=== PATIENT | female | born 1960 | race Asian ===

== ENCOUNTER 2020-04-05 09:28 | Emergency (ER) | payer MEDICAID ==
[~2020-04-05] VITALS: Ht 157.5 cm; Wt 45.8 kg
[2020-04-05 09:30] VITALS: BP_SYST 100
[2020-04-05] MEDS ORDERED: PREDNISONE 20 MG TABLET PO ONE (09:45)
[2020-04-05 09:58] VITALS: BP_SYST 100
== END 2020-04-05 09:58 | disposition home or self-care (01) ==
LOC: SED 09:28
DX: R21 Rash and other nonspecific skin eruption (principal)
CPT/HCPCS: 99283; J7512

== ENCOUNTER 2021-05-29 09:31 | Emergency (ER) | payer MEDICAID ==
[~2021-05-29] VITALS: Ht 160 cm; Wt 47.2 kg
[2021-05-29 09:44] VITALS: BP_SYST 147
--- NOTE | 2021-05-29 09:49 | NUR ---
Patient to ER bed 2 to gown for evaluation. Side rails up. Report given to Richardson FELICIANO.
[2021-05-29] MEDS ORDERED: FLUORESCEIN SODIUM 1 MG OPHTHALMIC STRIP OP ONE (10:00)
[2021-05-29] MEDS ORDERED: TETRACAINE HCL/PF 0.5% OPHTHALMIC DROPS 4 ML OP ONE (10:00)
--- NOTE | 2021-05-29 10:02 | NUR ---
DR JACKSON IN TO ASSESS
--- NOTE | 2021-05-29 10:12 | NUR ---
RESTING EASY. CALM, ALERT, RESP UNLABORED, NO DISTRESS
[2021-05-29 11:02] VITALS: BP_SYST 119
--- NOTE | 2021-05-29 11:02 | NUR ---
EYE EXAM BY REESE JACKSON TOLERATED WELL
--- NOTE | 2021-05-29 11:03 | NUR ---
Patient given written and verbal discharge instructions and verbalizes understanding. ER MD discussed with patient the results and treatment provided. Patient in stable condition. ID arm band removed. Patient educated on pain management and to follow up with PMD. Pain Scale 1/10 Opportunity for questions provided and answered.
== END 2021-05-29 11:03 | disposition home or self-care (01) ==
LOC: SED 09:31
DX: H11.31 Conjunctival hemorrhage, right eye (principal)
CPT/HCPCS: 99284